=== PATIENT | male | born 1950 | race Caucasian/White ===

== ENCOUNTER 2023-04-04 03:59 | Inpatient (IN) | payer OTHER ==
[~2023-04-04] VITALS: Ht 177.8 cm; Wt 74.1 kg
[2023-04-04] MEDS: LORazepam MDV 2MG/ML 10 ML IV ONE (04:06)
[2023-04-04] MEDS: LORazepam 2MG/ML-1ML VIAL IV ONE (04:06)
[2023-04-04] MEDS: levETIRAcetam 1000 mg/100ml 100 ML IV ONE (04:26)
[2023-04-04 04:44] LABS: Basophils # (auto) 0.1 10 ^3/uL (0-0.2); Basophils % (auto) 0.8 % (0.0-2.0); Eosinophils # (auto) 0.1 10 ^3/uL (0-0.8); Eosinophils % (auto) 0.6 % (0.0-7.0); Hemoglobin 16.2 g/dL (13.5-17.5); Lymphocytes # (auto) 3.8 10 ^3/uL (0.4-5.4); Lymphocytes % (auto) 27.9 % (10.0-50.0); Mean Corpuscular Hemoglobin 30.6 pg (28.0-32.0); Mean Corpuscular Hgb Conc. 31.7 g/dL (32.0-36.0); Mean Corpuscular Volume 96.5 fL (80.0-100.0); Monocytes # (auto) 0.5 10 ^3/uL (0-1.3); Monocytes % (auto) 3.5 % (0.0-12.0); Neutrophils % (auto) 67.2 % (37.0-80.0); Nucleated Red Blood Cells % 0.3 %; Red Blood Cells 5.28 10^6/uL (4.5-5.90); Red Cell Distribution Width 13.6 % (11.8-14.3); White Blood Cell 13.4 10^3/uL (4.4-10.8)
[2023-04-04 04:54] LABS: Alanine Aminotransferase 29 U/L (7-40); Albumin 4.6 g/dL (3.2-4.8); Alkaline Phosphatase 61 U/L (46-116); Anion Gap 29.00001 (5-15); Aspartate Aminotransferase 34 U/L (13-40); Bilirubin, Total 0.9 mg/dL (0.2-1.0); Blood Alcohol < 3.0 mg/dL (<10); Blood Urea Nitrogen 13 mg/dL (9-23); Calcium 9.8 mg/dL (8.5-10.1); Chloride 101 mmol/L (98-107); Glucose 269 mg/dL (74-106); Potassium 3.5 mmol/L (3.5-5.1); Sodium 140 mmol/L (136-145); Total Protein 7.3 g/dL (5.7-8.2)
[2023-04-04 05:03] LABS: Carbon Dioxide < 10 mmol/L (20-30)
[2023-04-04] MEDS: SODIUM CHLORIDE 0.9% 1,000 ML IV ONE ×2 (05:26→11:07)
[2023-04-04] MEDS: SODIUM BICARB 50mEq/50ml Vial 50 ML in SOD CHL 0.45% 1,000 ML IV ONE (05:27)
[2023-04-04] MEDS: SODIUM BICARB 8.4% 50Meq/50ml SYR Vial IV ONE (05:27)
[2023-04-04 05:30] VITALS: PULSE 88; RESP 20; O2SAT 98
[2023-04-04 05:40] LABS: Base Excess -9.1 mmol/L (-2.0-2.0)
[2023-04-04 07:20] VITALS: PULSE 84; RESP 20; O2SAT 98
[2023-04-04 07:41] LABS: Amphetamine Screen, Urine Neg (NEGATIVE); Barbiturate Scree,Urine Neg (NEGATIVE); Benzodiazephine Screen, Urine Neg (NEGATIVE); Cannabinoid Screen, Urine Pos (NEGATIVE); Cocaine Screen, Urine Neg (NEGATIVE); Opiate Scree,Urine Neg (NEGATIVE); Phencyclidine Screen, Urine Neg (NEGATIVE)
[2023-04-04] MEDS: LACTULOSE 20Gm/30ML SOLN NG ONE (08:45)
[2023-04-04] MEDS: LACTULOSE 20Gm/30ML SOLN PO ONE (08:50)
[2023-04-04] MEDS ORDERED: ONDANSETRON HCL 4 MG/2 ML VIAL IV PRN (10:45)
[2023-04-04] MEDS ORDERED: NITROGLYCERIN 0.4 MG SL TAB SL PRN (10:45)
[2023-04-04] MEDS ORDERED: VANCOMYCIN PER PHARMACY 0 MG IV SCH (10:45)
[2023-04-04] MEDS ORDERED: HYDROcodone-ACET 5/325MG TAB PO PRN (10:45)
[2023-04-04] MEDS ORDERED: DOCUSATE SOD 100 MG CAP PO PRN (10:45)
[2023-04-04] MEDS ORDERED: MORPHINE SULFATE INJ 2 MG/ml SYRG IV PRN (10:45)
[2023-04-04] MEDS ORDERED: ACETAMINOPHEN 325 MG TAB PO PRN (10:45)
[2023-04-04] MEDS ORDERED: DEXTROSE (50%) 50ML SYRG IV PRN (10:45)
[2023-04-04] MEDS: VANCOMYCIN 1GM/200ML 200 ML IV ONE (10:57)
[2023-04-04] MEDS: SODIUM CHLORIDE 0.9% 1,000 ML IV SCH (11:07)
[2023-04-04 11:48] LABS: Urine WBC None Seen /hpf (0 - 3)
[2023-04-04 12:02] LABS: Urine Amorphous Crystal FEW /hpf (None Seen); Urine Bacteria NONE SEEN /hpf (None Seen); Urine Blood 2+ /uL (Negative); Urine Clarity CLOUDY (Clear); Urine Color Yellow (Yellow); Urine Mucus FEW (None Seen); Urine Protein, UAD 1+ (Negative); Urine Specific Gravity 1.018 (1.001-1.035); Urine Urobilinogen Normal (Negative); Urine pH 5.5 (5.0-8.0)
[2023-04-04] MEDS: ACCU-CHEK COMFORT CURVE STRIP VI SCH (12:09)
[2023-04-04] MEDS: InsuLIN REG 1unit/0.01ml Soln (100units/ml) SC SCH (12:32)
[2023-04-04 14:11] LABS: Alanine Aminotransferase 27 U/L (7-40); Albumin 4.2 g/dL (3.2-4.8); Alkaline Phosphatase 52 U/L (46-116); Anion Gap 7 (5-15); Aspartate Aminotransferase 43 U/L (13-40); BUN/Creatinine Ratio 14.6 (10.0-20.0); Blood Urea Nitrogen 14 mg/dL (9-23); Calcium 8.9 mg/dL (8.5-10.1); Carbon Dioxide 25 mmol/L (20-30); Glucose 103 mg/dL (74-106); Sodium 143 mmol/L (136-145)
[2023-04-04 14:12] LABS: Bilirubin, Total 0.7 mg/dL (0.2-1.0); Total Protein 6.3 g/dL (5.7-8.2)
[2023-04-04 14:13] LABS: Chloride 111 mmol/L (98-107)
[2023-04-04] MEDS ORDERED: TERA10CA36 PO (16:34)
[2023-04-04] MEDS ORDERED: HYDR25TA4 PO (16:34)
[2023-04-04] MEDS ORDERED: ESCI1TAB37 PO (16:34)
[2023-04-04] MEDS ORDERED: GAB100C PO (16:34)
[2023-04-04] MEDS ORDERED: ROSU1TAB14 PO (16:34)
[2023-04-04 19:55] VITALS: PULSE 72; RESP 16; O2SAT 98
[2023-04-04] MEDS: levETIRAcetam 500 mg/100ml 100 ML IV SCH (21:38)
[2023-04-04] MEDS: VANCOMYCIN 750mg/150ml 150 ML IV SCH (21:44)
[2023-04-04] MEDS: GABAPENTIN 100 MG CAP PO SCH (21:56)
[2023-04-04] MEDS: ATORVASTATIN 20 MG TAB PO SCH (21:56)
[2023-04-04] MEDS: CEFEPIME 1GM/ 50ML 50 ML IV SCH (22:00)
[2023-04-05 05:50] LABS: Basophils # (auto) 0 10 ^3/uL (0-0.2); Basophils % (auto) 0.2 % (0.0-2.0); Eosinophils # (auto) 0 10 ^3/uL (0-0.8); Eosinophils % (auto) 0.2 % (0.0-7.0); Hematocrit 40.9 % (41.0-53.0); Lymphocytes # (auto) 1.5 10 ^3/uL (0.4-5.4); Mean Corpuscular Hemoglobin 31.6 pg (28.0-32.0); Mean Corpuscular Hgb Conc. 34.3 g/dL (32.0-36.0); Mean Corpuscular Volume 92.1 fL (80.0-100.0); Monocytes # (auto) 0.8 10 ^3/uL (0-1.3); Neutrophils # (auto) 11.4 10 ^3/uL (1.6-8.6); Neutrophils % (auto) 82.6 % (37.0-80.0); Red Blood Cells 4.44 10^6/uL (4.5-5.90); Red Cell Distribution Width 13.2 % (11.8-14.3); White Blood Cell 13.7 10^3/uL (4.4-10.8)
[2023-04-05 06:11] LABS: Alanine Aminotransferase 26 U/L (7-40); Albumin 3.7 g/dL (3.2-4.8); Alkaline Phosphatase 46 U/L (46-116); Anion Gap 8 (5-15); Aspartate Aminotransferase 59 U/L (13-40); BUN/Creatinine Ratio 12.1 (10.0-20.0); Blood Urea Nitrogen 11 mg/dL (9-23); Calcium 8.4 mg/dL (8.7-10.4); Carbon Dioxide 24 mmol/L (20-30); Chloride 110 mmol/L (98-107); Glucose 93 mg/dL (74-106); Potassium 3.3 mmol/L (3.5-5.1); Sodium 142 mmol/L (136-145); Total Protein 5.5 g/dL (5.7-8.2)
[2023-04-05 07:49] VITALS: PULSE 84; RESP 16; O2SAT 100
[2023-04-05] MEDS ORDERED: LORazepam 2MG/ML-1ML VIAL IV PRN ×2 (11:00)
[2023-04-05] MEDS: POTASSIUM CHL 20 Meq TABLET PO ONE (12:00)
[2023-04-05 19:44] VITALS: PULSE 60; RESP 21; O2SAT 94
[2023-04-05 23:27] VITALS: BP 139/66; PULSE 63; PULSE 65; RESP 17; RESP 18; TEMP 97.9; O2SAT 95
[2023-04-06 05:00] VITALS: BP 131/58; PULSE 68; RESP 18; TEMP 98.1; O2SAT 96
[2023-04-06 06:03] LABS: Basophils # (auto) 0 10 ^3/uL (0-0.2); Basophils % (auto) 0.3 % (0.0-2.0); Eosinophils # (auto) 0 10 ^3/uL (0-0.8); Eosinophils % (auto) 0.4 % (0.0-7.0); Hematocrit 39.3 % (41.0-53.0); Hemoglobin 13.5 g/dL (13.5-17.5); Lymphocytes # (auto) 1.8 10 ^3/uL (0.4-5.4); Lymphocytes % (auto) 17.9 % (10.0-50.0); Mean Corpuscular Hemoglobin 31.6 pg (28.0-32.0); Mean Corpuscular Hgb Conc. 34.4 g/dL (32.0-36.0); Mean Corpuscular Volume 91.8 fL (80.0-100.0); Monocytes # (auto) 0.7 10 ^3/uL (0-1.3); Monocytes % (auto) 7.6 % (0.0-12.0); Neutrophils # (auto) 7.2 10 ^3/uL (1.6-8.6); Neutrophils % (auto) 73.8 % (37.0-80.0); Nucleated Red Blood Cells % 0.1 %; Red Blood Cells 4.28 10^6/uL (4.5-5.90); Red Cell Distribution Width 12.9 % (11.8-14.3); White Blood Cell 9.8 10^3/uL (4.4-10.8)
[2023-04-06 06:19] LABS: Anion Gap 6 (5-15); Carbon Dioxide 28 mmol/L (20-30); Chloride 109 mmol/L (98-107); Potassium 3.9 mmol/L (3.5-5.1); Sodium 143 mmol/L (136-145)
[2023-04-06 06:21] LABS: Calcium 8.8 mg/dL (8.5-10.1)
[2023-04-06 06:25] LABS: BUN/Creatinine Ratio 15.1 (10.0-20.0); Blood Urea Nitrogen 13 mg/dL (9-23); Glucose 86 mg/dL (74-106)
[2023-04-06 08:00] VITALS: PULSE 55; PULSE 78; RESP 20; O2SAT 96
[2023-04-06 09:00] VITALS: BP 118/59; PULSE 57; RESP 17; TEMP 98.1; O2SAT 98
[2023-04-06 12:30] VITALS: BP 134/49; PULSE 68; RESP 17; TEMP 98.8; O2SAT 94
[2023-04-07 09:01] LABS: Hepatitis B Surface Antigen Negative (Negative)
[2023-04-07 09:23] LABS: Hepatitis C Antibody Negative (Negative)
== END 2023-04-06 13:10 | disposition home or self-care (01) | DRG 100 ==
LOC: ER 03:59 → EDBD 03:59 → TELE-EAST 10:44 → TELE 10:44 → TELE-EAST 04-05 22:54
PROVIDERS: ADMIT Nurse Practitioner Family; ATTEND Internal Medicine
DX: G40.909 Epilepsy, unspecified, not intractable, without status epilepticus (principal); N17.0 Acute kidney failure with tubular necrosis; E87.20 Acidosis, unspecified; D72.829 Elevated white blood cell count, unspecified; E11.65 Type 2 diabetes mellitus with hyperglycemia; I10 Essential (primary) hypertension; F32.A Depression, unspecified; E78.5 Hyperlipidemia, unspecified; F41.9 Anxiety disorder, unspecified; N40.0 Benign prostatic hyperplasia without lower urinary tract symptoms; Z90.49 Acquired absence of other specified parts of digestive tract; Z82.49 Family history of ischemic heart disease and other diseases of the circulatory system; Z83.3 Family history of diabetes mellitus; Z81.8 Family history of other mental and behavioral disorders
CPT/HCPCS: 36415; 36600; 70450; 70551; 71045; 72125; 80048; 80053; 80307; 80320; 81001; 82010; 82140; 82805; 82962; 83605; 85025; 86803; 87040; 87086; 87340; 93005; 95819; 96365; 97110; 97116; 97163; 97530; G0378; J1815

== ENCOUNTER 2023-04-24 08:26 | Inpatient (IN) | payer OTHER ==
[~2023-04-24] VITALS: Ht 167.6 cm; Wt 44.5 kg
[~2023-04-24 08:26] MED LIST: ESCI1TAB37 PO; HYDR25TA4 PO; ROSU1TAB14 PO; TERA10CA36 PO
[2023-04-24] MEDS: LORazepam 2MG/ML-1ML VIAL IV ONE (08:35)
[2023-04-24 09:11] LABS: Basophils # (auto) 0.1 10 ^3/uL (0-0.2); Basophils % (auto) 0.5 % (0.0-2.0); Eosinophils # (auto) 0.1 10 ^3/uL (0-0.8); Eosinophils % (auto) 0.8 % (0.0-7.0); Hematocrit 48.1 % (41.0-53.0); Hemoglobin 15.2 g/dL (13.5-17.5); Lymphocytes # (auto) 4.1 10 ^3/uL (0.4-5.4); Lymphocytes % (auto) 23.7 % (10.0-50.0); Mean Corpuscular Hemoglobin 30.5 pg (28.0-32.0); Mean Corpuscular Hgb Conc. 31.7 g/dL (32.0-36.0); Mean Corpuscular Volume 96.5 fL (80.0-100.0); Monocytes # (auto) 0.6 10 ^3/uL (0-1.3); Monocytes % (auto) 3.5 % (0.0-12.0); Neutrophils # (auto) 12.3 10 ^3/uL (1.6-8.6); Neutrophils % (auto) 71.5 % (37.0-80.0); Red Blood Cells 4.99 10^6/uL (4.5-5.90); Red Cell Distribution Width 13.3 % (11.8-14.3); White Blood Cell 17.2 10^3/uL (4.4-10.8)
[2023-04-24 09:22] LABS: Chloride 103 mmol/L (98-107); Potassium 3.3 mmol/L (3.5-5.1); Sodium 142 mmol/L (136-145)
[2023-04-24 09:24] LABS: Anion Gap 26 (5-15); Carbon Dioxide 13 mmol/L (20-30)
[2023-04-24 09:29] LABS: Blood Urea Nitrogen 24 mg/dL (9-23); Glucose 278 mg/dL (74-106)
[2023-04-24] MEDS: SODIUM CHLORIDE 0.9% 1,000 ML IV ONE ×4 (09:54→12:36)
[2023-04-24] MEDS: levETIRAcetam 1000 mg/100ml 100 ML IV ONE (09:54)
[2023-04-24] MEDS ORDERED: DEXTROSE (50%) 50ML SYRG IV PRN ×2 (12:00→13:15)
[2023-04-24 12:06] VITALS: PULSE 112; RESP 15; O2SAT 96
[2023-04-24 12:18] LABS: Base Excess -0.9 mmol/L (-2.0-2.0)
[2023-04-24] MEDS: INSULIN LANTUS (GLARGINE) 1 /0.01ml (100units/ml) SC SCH (12:26)
[2023-04-24] MEDS: ACCU-CHEK COMFORT CURVE STRIP VI SCH ×2 (12:30→17:00)
[2023-04-24] MEDS: INSULIN DRIP 100 UNIT/100ML 100 ML IV SCH (12:34)
[2023-04-24] MEDS: INSULIN LANTUS (GLARGINE) 1 /0.01ml (100units/ml) SC ONE (12:35)
[2023-04-24] MEDS ORDERED: D5W/SOD CHL 0.45% 1,000 ML IV SCH (13:00)
[2023-04-24] MEDS ORDERED: ONDANSETRON HCL 4 MG/2 ML VIAL IV PRN (13:15)
[2023-04-24] MEDS ORDERED: ACETAMINOPHEN 325 MG TAB PO PRN (13:15)
[2023-04-24] MEDS ORDERED: DOCUSATE SOD 100 MG CAP PO PRN (13:15)
[2023-04-24] MEDS ORDERED: HYDROcodone-ACET 5/325MG TAB PO PRN (13:15)
[2023-04-24] MEDS ORDERED: NITROGLYCERIN 0.4 MG SL TAB SL PRN (13:15)
[2023-04-24] MEDS ORDERED: MORPHINE SULFATE INJ 2 MG/ml SYRG IV PRN ×2 (13:15)
[2023-04-24] MEDS ORDERED: POTA-264 PO (13:22)
[2023-04-24] MEDS: POTASSIUM EFFERVESENT TAB 25 MEQ PO ONE (13:39)
[2023-04-24 13:40] LABS: Chloride 105 mmol/L (98-107); Potassium 3.5 mmol/L (3.5-5.1); Sodium 139 mmol/L (136-145)
[2023-04-24 13:41] LABS: Anion Gap 8 (5-15); Carbon Dioxide 26 mmol/L (20-30)
[2023-04-24 13:42] LABS: Calcium 9.3 mg/dL (8.7-10.4)
[2023-04-24 13:46] LABS: Blood Urea Nitrogen 20 mg/dL (9-23); Glucose 183 mg/dL (74-106)
[2023-04-24 14:13] LABS: Urine Bacteria NONE SEEN /hpf (None Seen); Urine Blood Negative /uL (Negative); Urine Clarity Clear (Clear); Urine Color Colorless (Yellow); Urine Hyaline Cast FEW /lpf (0 - 2); Urine Protein, UAD 1+ (Negative); Urine Specific Gravity 1.019 (1.001-1.035); Urine Urobilinogen Normal (Negative); Urine WBC 1 /hpf (0 - 3); Urine pH 5.5 (5.0-8.0)
[2023-04-24] MEDS: SOD CHL 0.45% 1,000 ML IV SCH (15:13)
[2023-04-24] MEDS: cefTRIAXone 1GM/50ML D5W 50 ML IV SCH (15:14)
[2023-04-24] MEDS: InsuLIN REG 1unit/0.01ml Soln (100units/ml) SC SCH ×2 (17:00→22:00)
[2023-04-24 20:00] VITALS: PULSE 62; RESP 16; O2SAT 98
[2023-04-24] MEDS: levETIRAcetam 500 mg/100ml 100 ML IV SCH (22:34)
[2023-04-24] MEDS: ATORVASTATIN 20 MG TAB PO SCH (22:34)
[2023-04-25] VITALS (10 sets, daily range): BP systolic 102–116; BP diastolic 48–68; PULSE 60–73; RESP 16–19; TEMP 97.8–99; O2SAT 94–96
[2023-04-25] MEDS ORDERED: LORazepam 2MG/ML-1ML VIAL IV PRN (01:00)
[2023-04-25 06:44] LABS: Alanine Aminotransferase 25 U/L (7-40); Albumin 3.8 g/dL (3.2-4.8); Alkaline Phosphatase 82 U/L (46-116); Anion Gap 5 (5-15); Aspartate Aminotransferase 40 U/L (13-40); BUN/Creatinine Ratio 18.4 (10.0-20.0); Blood Urea Nitrogen 16 mg/dL (9-23); Carbon Dioxide 30 mmol/L (20-30); Chloride 108 mmol/L (98-107); Glucose 87 mg/dL (74-106); Potassium 3.6 mmol/L (3.5-5.1); Sodium 143 mmol/L (136-145)
[2023-04-25 06:45] LABS: Bilirubin, Total 0.7 mg/dL (0.2-1.0); Total Protein 5.5 g/dL (5.7-8.2)
[2023-04-25 07:02] LABS: Basophils # (auto) 0.1 10 ^3/uL (0-0.2); Basophils % (auto) 0.7 % (0.0-2.0); Eosinophils # (auto) 0 10 ^3/uL (0-0.8); Eosinophils % (auto) 0.1 % (0.0-7.0); Hematocrit 40.1 % (41.0-53.0); Hemoglobin 13.7 g/dL (13.5-17.5); Lymphocytes # (auto) 1.1 10 ^3/uL (0.4-5.4); Lymphocytes % (auto) 9.3 % (10.0-50.0); Mean Corpuscular Hemoglobin 31.1 pg (28.0-32.0); Mean Corpuscular Hgb Conc. 34.2 g/dL (32.0-36.0); Mean Corpuscular Volume 90.9 fL (80.0-100.0); Monocytes # (auto) 0.7 10 ^3/uL (0-1.3); Monocytes % (auto) 5.7 % (0.0-12.0); Neutrophils # (auto) 9.6 10 ^3/uL (1.6-8.6); Neutrophils % (auto) 84.2 % (37.0-80.0); Nucleated Red Blood Cells % 0.1 %; Red Blood Cells 4.41 10^6/uL (4.5-5.90); Red Cell Distribution Width 13.1 % (11.8-14.3); White Blood Cell 11.4 10^3/uL (4.4-10.8)
[2023-04-25 10:31] LABS: CRP High Sensitivity 0.96 mg/dL (<1.0)
[2023-04-25] MEDS: hydroCHLOROthiazide 25 MG TAB PO SCH (10:31)
[2023-04-25] MEDS: TERAZOSIN HCL 5 MG CAP PO SCH (10:31)
[2023-04-25] MEDS: CITALOPRAM HYDROBR 20 MG TAB PO SCH (10:31)
[2023-04-25] MEDS: POTASSIUM CHL 10 Meq TABLET PO SCH (10:32)
[2023-04-25 10:39] LABS: Magnesium 2.1 mg/dL (1.6-2.6)
[2023-04-25] MEDS: POTASSIUM CHL 20 Meq TABLET PO ONE (10:42)
[2023-04-25 11:18] LABS: Amphetamine Screen, Urine Neg (NEGATIVE); Barbiturate Scree,Urine Neg (NEGATIVE); Benzodiazephine Screen, Urine Neg (NEGATIVE)
[2023-04-25 11:19] LABS: Cannabinoid Screen, Urine Pos (NEGATIVE); Cocaine Screen, Urine Neg (NEGATIVE); Opiate Scree,Urine Neg (NEGATIVE); Phencyclidine Screen, Urine Neg (NEGATIVE)
[2023-04-25 11:19] LABS: INR 1.05 (0.9-1.15)
[2023-04-25 12:23] LABS: Folate (Folic Acid) > 24.00 ng/mL (>5.38)
[2023-04-25] MEDS ORDERED: DEXTROSE (50%) 50ML SYRG IV PRN (14:45)
[2023-04-25] MEDS: ACCU-CHEK COMFORT CURVE STRIP VI SCH (16:59)
[2023-04-25] MEDS: InsuLIN REG 1unit/0.01ml Soln (100units/ml) SC SCH (16:59)
[2023-04-25] MEDS: levETIRAcetam 500 MG TAB PO SCH (21:11)
[2023-04-26 01:05] VITALS: BP 122/74; PULSE 57; RESP 18; TEMP 98.2; O2SAT 96
[2023-04-26 05:11] VITALS: BP 132/66; PULSE 64; RESP 19; TEMP 98.1; O2SAT 96
[2023-04-26 06:34] LABS: Basophils # (auto) 0.1 10 ^3/uL (0-0.2); Basophils % (auto) 0.8 % (0.0-2.0); Eosinophils # (auto) 0.1 10 ^3/uL (0-0.8); Eosinophils % (auto) 1.9 % (0.0-7.0); Hematocrit 41.5 % (41.0-53.0); Hemoglobin 14.3 g/dL (13.5-17.5); Lymphocytes # (auto) 1.9 10 ^3/uL (0.4-5.4); Mean Corpuscular Hemoglobin 31.6 pg (28.0-32.0); Mean Corpuscular Hgb Conc. 34.4 g/dL (32.0-36.0); Mean Corpuscular Volume 91.8 fL (80.0-100.0); Monocytes # (auto) 0.5 10 ^3/uL (0-1.3); Neutrophils # (auto) 4.7 10 ^3/uL (1.6-8.6); Neutrophils % (auto) 64.3 % (37.0-80.0); Nucleated Red Blood Cells % 0.1 %; Red Blood Cells 4.53 10^6/uL (4.5-5.90); Red Cell Distribution Width 12.9 % (11.8-14.3); White Blood Cell 7.3 10^3/uL (4.4-10.8)
[2023-04-26 06:45] LABS: Alanine Aminotransferase 28 U/L (7-40); Albumin 3.7 g/dL (3.2-4.8); Alkaline Phosphatase 81 U/L (46-116); Anion Gap 7 (5-15); Aspartate Aminotransferase 38 U/L (13-40); BUN/Creatinine Ratio 20.7 (10.0-20.0); Blood Urea Nitrogen 18 mg/dL (9-23); Calcium 8.9 mg/dL (8.7-10.4); Carbon Dioxide 27 mmol/L (20-30); Chloride 106 mmol/L (98-107); Glucose 96 mg/dL (74-106); Magnesium 1.9 mg/dL (1.6-2.6); Potassium 4.1 mmol/L (3.5-5.1); Sodium 140 mmol/L (136-145)
[2023-04-26 06:46] LABS: Bilirubin, Total 0.7 mg/dL (0.2-1.0); Total Protein 5.5 g/dL (5.7-8.2)
[2023-04-26 07:32] LABS: CRP High Sensitivity 1.28 mg/dL (<1.0)
[2023-04-26 08:00] VITALS: PULSE 60
[2023-04-26 08:40] LABS: RBC Morphology Normal
[2023-04-26 08:41] LABS: Platelet Estimate Adequate
[2023-04-26 09:17] VITALS: BP 124/66; PULSE 76; RESP 16; TEMP 98.2; O2SAT 96
[2023-04-26] MEDS ORDERED: KEP500T PO (12:28)
[2023-04-26 13:40] VITALS: BP 111/63; PULSE 69; RESP 19; TEMP 97.9; O2SAT 95
== END 2023-04-26 15:34 | disposition home or self-care (01) | DRG 100 ==
LOC: ER 08:26 → EDBD 08:26 → TELE 13:11 → TELE-CENTR 04-25 00:07 → TELE 04-25 08:46 → TELE-CENTR 04-25 10:18
PROVIDERS: ADMIT Internal Medicine; ATTEND Internal Medicine
DX: G40.409 Other generalized epilepsy and epileptic syndromes, not intractable, without status epilepticus (principal); E11.00 Type 2 diabetes mellitus with hyperosmolarity without nonketotic hyperglycemic-hyperosmolar coma (NKHHC); J96.01 Acute respiratory failure with hypoxia; E11.10 Type 2 diabetes mellitus with ketoacidosis without coma; R65.10 Systemic inflammatory response syndrome (SIRS) of non-infectious origin without acute organ dysfunction; F32.A Depression, unspecified; E78.5 Hyperlipidemia, unspecified; I10 Essential (primary) hypertension; N40.0 Benign prostatic hyperplasia without lower urinary tract symptoms; E87.6 Hypokalemia; F17.200 Nicotine dependence, unspecified, uncomplicated; Z79.899 Other long term (current) drug therapy; Z81.8 Family history of other mental and behavioral disorders; Z82.49 Family history of ischemic heart disease and other diseases of the circulatory system; Z83.3 Family history of diabetes mellitus; Z80.8 Family history of malignant neoplasm of other organs or systems; Z90.49 Acquired absence of other specified parts of digestive tract
CPT/HCPCS: 36415; 36600; 70450; 71045; 80048; 80053; 80061; 80307; 81001; 82010; 82140; 82306; 82607; 82746; 82805; 82962; 83036; 83735; 84443; 84484; 85025; 85610; 86141; 87081; 93005; 93306; 95819; 96361; 96365; 96372; 96375; 99291; G0378; J1815

== ENCOUNTER 2023-07-28 17:05 | Emergency (ER) | payer OTHER ==
[~2023-07-28] VITALS: Ht 175.3 cm; Wt 72.7 kg
[~2023-07-28 17:05] MED LIST changes: +KEP500T PO; +POTA-264 PO; -ROSU1TAB14 PO; +ROSU20TA56 PO
[2023-07-28] MEDS ORDERED: ONDANSETRON ODT 4 MG TAB PO ONE (18:15)
[2023-07-28] MEDS: ONDANSETRON HCL 4 MG/2 ML VIAL ONE (18:21)
[2023-07-28] MEDS: levETIRAcetam 1000 mg/100ml 100 ML IV ONE ×2 (18:22→18:24)
[2023-07-28] MEDS: ONDANSETRON HCL 4 MG/2 ML VIAL IV ONE (18:24)
[2023-07-28 18:36] VITALS: PULSE 85; RESP 20; O2SAT 96
[2023-07-28 18:40] LABS: Basophils # (auto) 0 10 ^3/uL (0-0.2); Basophils % (auto) 0.2 % (0.0-2.0); Eosinophils # (auto) 0 10 ^3/uL (0-0.8); Hematocrit 44.7 % (41.0-53.0); Hemoglobin 15.6 g/dL (13.5-17.5); Lymphocytes # (auto) 0.6 10 ^3/uL (0.4-5.4); Lymphocytes % (auto) 6.7 % (10.0-50.0); Mean Corpuscular Hemoglobin 31.6 pg (28.0-32.0); Mean Corpuscular Hgb Conc. 34.9 g/dL (32.0-36.0); Mean Corpuscular Volume 90.8 fL (80.0-100.0); Monocytes # (auto) 0.3 10 ^3/uL (0-1.3); Neutrophils # (auto) 7.9 10 ^3/uL (1.6-8.6); Neutrophils % (auto) 90.1 % (37.0-80.0); Red Blood Cells 4.92 10^6/uL (4.5-5.90); Red Cell Distribution Width 12.9 % (11.8-14.3); White Blood Cell 8.7 10^3/uL (4.4-10.8)
[2023-07-28 18:55] LABS: INR 1.03 (0.9-1.15); Partial Thromboplastin Time 23.4 SEC (24.5-34.5); Prothrombin Time 10.9 sec (9.3-11.8)
[2023-07-28 18:58] LABS: Alanine Aminotransferase 22 U/L (7-40); Albumin 4.6 g/dL (3.2-4.8); Alkaline Phosphatase 62 U/L (46-116); Anion Gap 11 (5-15); Aspartate Aminotransferase 23 U/L (13-40); BUN/Creatinine Ratio 14.9 (10.0-20.0); Bilirubin, Total 0.9 mg/dL (0.2-1.0); Blood Urea Nitrogen 15 mg/dL (9-23); Calcium 10.2 mg/dL (8.5-10.1); Carbon Dioxide 22 mmol/L (20-30); Chloride 104 mmol/L (98-107); Glucose 170 mg/dL (74-106); Potassium 3.3 mmol/L (3.5-5.1); Sodium 137 mmol/L (136-145)
[2023-07-28 19:36] VITALS: BP 98/8; PULSE 68; RESP 18; TEMP 98.7; O2SAT 98
== END 2023-07-28 20:35 | disposition home or self-care (01) ==
LOC: EDBD 17:05 → EDUNIT# 17:05 → ER 17:05
DX: G40.909 Epilepsy, unspecified, not intractable, without status epilepticus (principal); M25.511 Pain in right shoulder; M25.561 Pain in right knee; I10 Essential (primary) hypertension; E78.5 Hyperlipidemia, unspecified; F32.9 Major depressive disorder, single episode, unspecified; Z86.2 Personal history of diseases of the blood and blood-forming organs and certain disorders involving the immune mechanism
CPT/HCPCS: 36415; 71045; 73030; 73560; 80053; 85025; 85610; 85730; 96365; 96375; 99284; J1953; J2405

== ENCOUNTER 2023-12-13 02:03 | Emergency (ER) | payer OTHER ==
[~2023-12-13] VITALS: Ht 182.9 cm; Wt 72.7 kg
[2023-12-13 02:10] VITALS: PULSE 107; RESP 22; O2SAT 99
[2023-12-13] MEDS: levETIRAcetam 1000 mg/100ml 200 ML IV ONE (02:13)
[2023-12-13] MEDS: SODIUM CHLORIDE 0.9% 1,000 ML IV ONE (02:13)
--- NOTE | 2023-12-13 02:25 | ED.PDOC ---
History of Present Illness HPI Comments 73 y/o M, with a Hx of BPH, HLD, HTN, SIRS, acute hypoxic respiratory failure, metabolic encephalopathy, and epileptic seizures, is BIBA s/p multiple seizure episodes, today. Per EMS report, patient's called after witnessing the patient having a tonic clonic seizure of 10-15x minutes in duration, earlier, this evening. On scene, patient was found by EMS staff awake and back at his baseline w/o signs of any trauma, injuries, or incontinence and endorsing on taking his Lorazepam after coming to. Patient was then stated on having another tonic clonic seizure of 2x minutes of duration w/oral trauma and given 5mg of versed IM and transitioning to a post-ictal state afterwards. Patient's vitals were within normal limits and stable on scene and en-route, with exception of a blood glucose of 154 and slightly tachycardic at a rate within the 110's. Upon arrival to ED and time of assessment, patient is reported to still remain unchanged from post-ictal state and has no no other additional associated symptoms. Further Hx cannot be obtained, due to patient's current baseline condition and absence of family/wildlife refuge specialist historians, at time of evaluation. Time Seen by MD: 02:00 Primary Care Provider: UNKNOWN Reviewed Notes: Nurses Notes, Door Technician Notes, Medications, Allergies Allergies: Coded Allergies: NO KNOWN ALLERGIES (Unverified , 04/04/23) Home Meds Active Scripts Levetiracetam (KEPPRA TABLET) 500 Mg Tb, 500 MG PO BID for 30 Days, #60 TAB 2 Refills Prov:ALEXANDRIA GOTTI RESIDENT 04/26/23 Reported Medications Potassium Chloride (K-Tabs) 10 Meq Tab, 1 TAB PO DAILY 04/24/23 Escitalopram Oxalate (ESCITALOPRAM OXALATE) 20 Mg Tab, 1 TAB PO DAILY 04/04/23 Hydrochlorothiazide (Hydrochlorothiazide) 25 Mg Tab, 1 TAB PO DAILY 04/04/23 Rosuvastatin Calcium (Rosuvastatin Calcium) 20 Mg Tab, 1 TAB PO HS 04/04/23 Terazosin Hcl (Terazosin Hcl) 10 Mg Cap, 1 CAP PO DAILY 04/04/23 Information Source: Emergency Med Personnel Mode of Arrival: EMS Severity: Moderate Timing: Hours Duration: Minutes Prehospital treatment: 12 Lead EKG, Accucheck, Corrections Unit Supervisor, Other (5mg Versed ) Past Medical History PAST MEDICAL HISTORY: Depression, High Lipids, HTN, Seizures (tonic clonic and grand mals) Past Medical History (Other): acute hypoxic respiratory failure, BPH, SIRS, metabolic encephalopathy, Surgical History: Appendectomy Surgical History (Other): vasectomy Family History Family History: Unknown, Unobtainable Social History Smoker: Non-Smoker Alcohol: Denies ETOH Use Drugs: Denies Drug Use Lives In: Home (lives with family ) Constitutional: denies: chills, diaphoresis, fatigue, fever, malaise, sweats, weakness, others EENTM: reports: others (tongue bite wound ); denies: blurred vision, double vision, ear bleeding, ear discharge, ear drainage, ear pain, ear ringing, eye pain, eye redness, hearing loss, mouth pain, mouth swelling, nasal discharge, nose bleeding, nose congestion, nose pain, photophobia, tearing, throat pain, throat swelling, voice changes Respiratory: denies: cough, hemoptysis, orthopnea, SOB at rest, shortness of breath, SOB with excertion, stridor, wheezing, others Cardiovascular: denies: chest pain, dizzy spells, diaphoresis, Dyspnea on exertion, edema, irregular heart beat, left arm pain, lightheadedness, palpitations, PND, syncope, others Gastrointestinal: denies: abdomen distended, abdominal pain, blood streaked bowels, constipated, diarrhea, dysphagia, difficulty swallowing, hematemesis, melena, nausea, poor appetite, poor fluid intake, rectal bleeding, rectal pain, vomiting, others Genitourinary: denies: burning, dysuria, flank pain, frequency, hematuria, incontinence, penile discharge, penile sore, pain, testicle pain, testicle swelling, urgency, others Neurological: reports: seizure; denies: dizziness, fainting, headache, left sided numbness, left sided weakness, numbness, paresthesia, pre-existing deficit, right sided numbness, right sided weakness, speech problems, tingling, tremors, weakness, others Musculoskeletal: denies: back pain, gout, joint pain, joint swelling, muscle pain, muscle stiffness, neck pain, others Integumetry: denies: bruises, change in color, change in hair/nails, dryness, laceration, lesions, lumps, rash, wounds, others Allergic/Immunocompromised: denies: Difficulty Healing, Frequent Infections, Hives, Itching, others Hematologic/Lymphatic: denies: anemia, blood clots, easy bleeding, easy bruising, swollen glands, others Endocrine: denies: excessive hunger, excessive sweating, excessive thirst, excessive urination, flushing, intolerance to cold, intolerance to heat, unexplained weight gain, unexplained weight loss, others Psychiatric: denies: anxiety, bipolar disorder, depression, hopeless, panic disorder, schizophrenia, sleepless, suicidal, others All Other Systems: Reviewed and Negative Physical Exam General Appearance: No Apparent Distress, Normal, Other (patient in post-ictal state ) HEENT: Pharynx Normal, TMs Normal, Other (present oral tongue trauma) Neck: Full Range of Motion, Non-Tender, Normal, Normal Inspection Respiratory: Chest Non-Tender, Lungs Clear, No Accessory Muscle Use, No Respiratory Distress, Normal Breath Sounds Cardiovascular: No Edema, No JVD, No Murmur, No Gallop, Normal Peripheral Pulses, Regular Rate/Rhythm Breast Exam: Deferred Gastrointestinal: No Organomegaly, Non Tender, No Pulsatile Mass, Normal Bowel Sounds, Soft Genitalia: Deferred Pelvic: Deferred Rectal: Deferred Extremities: No calf tenderness, Normal capillary refill, Normal inspection, Normal range of motion, Non-tender, No pedal edema Musculoskeletal : Apperance: Normal Neurologic: mailroom courier II-XII nml as Tested, No Motor Deficits, No Sensory Deficits, Other (post-ictal state ) Cerebellar Function: Normal Reflexes: Normal Skin: Dry, Normal Color, Warm Lymphatic: No Adenopathy Was a procedure done? Was a procedure done?: No EKG EKG : Pulse Rate (adult): 110 [place]: Normal Cardiac Rhythm: ST Block: None Hypertrophy: None ST: Normal Differential Dx Considerations may include: multiple seizure episode, oral trauma, inappropriate medication dosage X-Ray, Labs, Meds, VS Vital Signs Date Time Temp Pulse Resp B/P (MAP) Pulse Ox O2 Delivery O2 Flow Rate FiO2 12/13/23 04:00 76 12/13/23 02:25 110 12/13/23 02:17 97.5 112 22 127/82 (97) 99 12/13/23 02:11 110 12/13/23 02:10 97.5 106 16 97/43 (61) 99 97.5 12/13/23 02:10 107 22 99 Nasal Cannula* 4 36 Lab Test 12/13/23 04:20 12/13/23 03:13 12/13/23 02:18 Range/Units Lactic Acid Level 1.9 15.3 *H 0.4-2.0 mmol/L Troponin I High Sensitivity 22 11 6 </=54 ng/L White Blood Count 8.4 4.4-10.8 10^3/uL Red Blood Count 4.46 L 4.5-5.90 10^6/uL Hemoglobin 14.2 13.5-17.5 g/dL Hematocrit 42.8 41.0-53.0 % Mean Corpuscular Volume 96.0 80.0-100.0 fL Mean Corpuscular Hemoglobin 31.9 28.0-32.0 pg Mean Corpuscular Hemoglobin Concent 33.2 32.0-36.0 g/dL Red Cell Distribution Width 13.2 11.8-14.3 % Platelet Count 257 140-450 10^3/uL Mean Platelet Volume 6.8 L 6.9-10.8 fL Neutrophils (%) (Auto) 73.8 37.0-80.0 % Lymphocytes (%) (Auto) 21.8 10.0-50.0 % Monocytes (%) (Auto) 2.8 0.0-12.0 % Eosinophils (%) (Auto) 1.0 0.0-7.0 % Basophils (%) (Auto) 0.6 0.0-2.0 % Neutrophils # (Auto) 6.2 1.6-8.6 10 ^3/uL Lymphocytes # (Auto) 1.8 0.4-5.4 10 ^3/uL Monocytes # (Auto) 0.2 0-1.3 10 ^3/uL Eosinophils # (Auto) 0.1 0-0.8 10 ^3/uL Basophils # (Auto) 0.1 0-0.2 10 ^3/uL Nucleated Red Blood Cells 0.0 % Sodium Level 142 136-145 mmol/L Potassium Level 3.7 3.5-5.1 mmol/L Chloride Level 108 H 98-107 mmol/L Carbon Dioxide Level 15 L 20-31 mmol/L Anion Gap 19 H 5-15 Blood Urea Nitrogen 19 9-23 mg/dL Creatinine 1.12 0.700-1.30 mg/dL Glomerular Filtration Rate Calc 70 >90 mL/min BUN/Creatinine Ratio 17.0 10.0-20.0 Serum Glucose 196 H 74-106 mg/dL Calcium Level 9.2 8.7-10.4 mg/dL Current Medications Medications (Trade) Dose Ordered Sig/Efren Route Start Time Stop Time Status Last Admin Sodium Chloride 1,000 ml @ 1,000 mls/hr Q1H ONCE IV 12/13/23 02:15 12/13/23 03:14 DC 12/13/23 02:13 Levetiracetam 200 ml @ 400 mls/hr ONCE ONCE IV 12/13/23 02:15 12/13/23 02:44 DC 12/13/23 02:13 Time of 1ST Reevaluation: 02:30 Reevaluation 1ST: Unchanged Patient Education/Counseling: Other (patient is post-ictal ) Family Education/Counseling: No Family Present Departure 1 Departure Time of Disposition: 05:29 (Patient had a breakthrough seizure and is now back to normal. He is feeling well and like to go home.) Impression: Primary Impression: Breakthrough seizure Disposition: 01 HOME / SELF CARE / HOMELESS Condition: Stable Additional Instructions: You had a breakthrough seizure today. It is important to take your seizure medication. You should stay well rested and well hydrated. You should follow up with your regular doctor within 1 week. If your symptoms worsen or you have any other concerns then please return to the emergency room. Discharged With: Spouse Critical Care Note Critical Care Time?: No Stability Stability form required: No Heart Score Heart Score: Heart Score Response (Comments) Value History N/A 0 EKG N/A 0 Age N/A 0 Risk Factors N/A 0 Troponin N/A 0 Total 0 I personally scribed for EDMAR SHEPHERD MD ([email or web address]) on 12/13/23 at 02:25. Electronically submitted by Héctor Rowland ([email or web address]). I personally scribed for EDMAR SHEPHERD MD ([email or web address]) on 12/13/23 at 02:39. Electronically submitted by Héctor Rowland ([email or web address]). I personally scribed for EDMAR SHEPHERD MD ([email or web address]) on 12/13/23 at 03:10. Electronically submitted by Héctor Rowland ([email or web address]). EDMAR SHEPHERD MD Dec 13, 2023 02:25
[2023-12-13 02:28] LABS: Basophils # (auto) 0.1 10 ^3/uL (0-0.2); Basophils % (auto) 0.6 % (0.0-2.0); Eosinophils # (auto) 0.1 10 ^3/uL (0-0.8); Hematocrit 42.8 % (41.0-53.0); Hemoglobin 14.2 g/dL (13.5-17.5); Lymphocytes # (auto) 1.8 10 ^3/uL (0.4-5.4); Lymphocytes % (auto) 21.8 % (10.0-50.0); Mean Corpuscular Hemoglobin 31.9 pg (28.0-32.0); Mean Corpuscular Hgb Conc. 33.2 g/dL (32.0-36.0); Monocytes # (auto) 0.2 10 ^3/uL (0-1.3); Monocytes % (auto) 2.8 % (0.0-12.0); Neutrophils # (auto) 6.2 10 ^3/uL (1.6-8.6); Neutrophils % (auto) 73.8 % (37.0-80.0); Platelet Count (auto) 257 10^3/uL (140-450); Red Blood Cells 4.46 10^6/uL (4.5-5.90); Red Cell Distribution Width 13.2 % (11.8-14.3); White Blood Cell 8.4 10^3/uL (4.4-10.8)
[2023-12-13 02:37] LABS: Chloride 108 mmol/L (98-107); Potassium 3.7 mmol/L (3.5-5.1); Sodium 142 mmol/L (136-145)
[2023-12-13 02:38] LABS: Anion Gap 19 (5-15); Carbon Dioxide 15 mmol/L (20-31)
[2023-12-13 02:39] LABS: Calcium 9.2 mg/dL (8.7-10.4)
[2023-12-13 02:43] LABS: Glucose 196 mg/dL (74-106)
[2023-12-13 02:44] LABS: Blood Urea Nitrogen 19 mg/dL (9-23)
[2023-12-13 03:22] LABS: Lactic Acid w/Reflex 15.3 mmol/L (0.4-2.0)
--- NOTE | 2023-12-13 03:58 | DVH ---
Examination: CXRP Clinical Indication: C/F SEIZURE Comparison: None. Technique: Frontal radiograph of the chest was obtained. Findings: Bilateral pulmonary elvira appear enlarged. Lungs are clear and well expanded with no pulmonary infiltrate or pleural effusion. There is no pneumothorax. The cardiomediastinal silhouette is within normal limits. No acute osseous abnormality is seen. Impression: 1. Mild enlargement of bilateral pulmonary elvira. 2. Suggest follow-up. Electronically Signed 12/13/2023 03:50 Yolanda Sagastume
--- NOTE | 2023-12-13 07:12 | ECG ---
[facility] Test Date: 2023-12-13 Test Time: 02:11:29 Pat Name: YONY STOVALL Department: ED Room: Gender: M Humidifier Attendant: CLAUDIA : 1950 Requested By: EDMAR SHEPHERD Order Number: [id number] Reading MD: Kameron Concepcion Measurements Intervals [place] Rate: 110 P: 79 UT: 140 QRS: 81 QRSD: 102 T: 69 QT: 411 QTc: 557 Interpretive Statements Sinus tachycardia Consider right ventricular hypertrophy Prolonged QT interval Electronically Signed On 12-15-2023 11:52:40 PST by Kameron Concepcion Please click the below link to view image of tracing.
[2023-12-13 08:00] VITALS: BP 134/90; PULSE 93; RESP 15; TEMP 98.1; O2SAT 95
== END 2023-12-13 05:31 | disposition home or self-care (01) ==
LOC: ER 02:03 → EDBD 02:03 → ER 05:31
DX: G40.909 Epilepsy, unspecified, not intractable, without status epilepticus (principal); F32.A Depression, unspecified; E78.5 Hyperlipidemia, unspecified; I10 Essential (primary) hypertension; Z79.899 Other long term (current) drug therapy; Z90.49 Acquired absence of other specified parts of digestive tract
CPT/HCPCS: 36415; 71045; 80048; 83605; 84484; 85025; 93005; 96365; 99285; J7030